=== PATIENT | male | born 1955 | race Caucasian/White ===

== ENCOUNTER → 2017-10-21 | Outpatient (REF) | LOC: M SMT 10:04 | DX: Z02.71 Encounter for disability determination (principal) ==

== ENCOUNTER → 2017-10-21 | Outpatient (CLI) | payer SELFPAY | LOC: M SMT 09:58 | DX: Z02.71 Encounter for disability determination (principal) ==

== ENCOUNTER → 2023-12-26 | Outpatient (REF) | payer MEDICARE, MEDICAID ==
[2023-12-26 16:07] LABS: CREATININE, URINE 66.7 MG/DL; MAU/CREAT RATIO 5.9 MCG/MG (0.0-30.0)
== END ==
LOC: M LAB REF 15:04
PROVIDERS: ATTEND Nurse Practitioner Family
DX: E11.65 Type 2 diabetes mellitus with hyperglycemia (principal)

== ENCOUNTER 2025-07-21 08:34 | Day surgery (SDC) | payer MEDICARE, MEDICAID ==
[~2025-07-21] VITALS: Ht 177.8 cm; Wt 89.7 kg
[2025-07-21] MEDS: OFLOXACIN 0.3 % (OCUFLOX) OPTH SOL 5ML OD ONE (06:00)
[~2025-07-21 08:34] MED LIST: ATOR1TAB19 PO; CELE1CAP99 PO; DOXY100C3 PO; GABA-1171 PO; JANU100T PO; JARD1TAB PO; LANS30CA93 PO; LIFI1DRO4; MIDAZOLAM INJ 2 MG/2 ML VIAL As Ordered ONE; PHENYLEPHRINE 10% OPHTH SOL 5ML OD PRN; TAMS1CAP17 PO
[2025-07-21] MEDS: LIDOCAINE 3.5% 1 ML OPHTH TOPICAL GEL OU ONE (09:29)
[2025-07-21] MEDS: PHENYLEPHRINE 2.5% OPHTH SOL 2ML OD SCH (09:30)
[2025-07-21] MEDS: TROPICAMIDE 1% OPHTH SOLN 15ML OD SCH (09:30)
[2025-07-21] MEDS: CYCLOPENTOLATE 1% OPHTH SOLN 2 ML BTL OD SCH (09:30)
[2025-07-21] MEDS: BSS IRRIG/VANCO(10MG)/TOBRA(5MG)/EPINEPH(1:1000-0.5CC)500ML BAG-ORONLY As Ordered ONE (10:13)
[2025-07-21] MEDS: LIDOCAINE 1% SDV 5 ML VIAL As Ordered ONE (10:13)
[2025-07-21] MEDS: CEFUROXIME 1 MG/0.1 ML INTRACAMERAL INJ As Ordered ONE (10:13)
[2025-07-21 10:30] VITALS: BP 145/81; TEMP 96.9; O2SAT 98
== END 2025-07-21 10:45 | disposition home or self-care (01) ==
LOC: M SDC 08:34
PROVIDERS: ATTEND Ophthalmology
DX: E11.36 Type 2 diabetes mellitus with diabetic cataract (principal); H25.11 Age-related nuclear cataract, right eye; E11.40 Type 2 diabetes mellitus with diabetic neuropathy, unspecified; E78.00 Pure hypercholesterolemia, unspecified; K21.9 Gastro-esophageal reflux disease without esophagitis; N40.0 Benign prostatic hyperplasia without lower urinary tract symptoms; Z79.899 Other long term (current) drug therapy; Z79.84 Long term (current) use of oral hypoglycemic drugs
CPT/HCPCS: 66984; 92015; J0697; J2250; J3010; V2788